=== PATIENT | male | born 1975 | race Caucasian/White ===

== ENCOUNTER 2024-10-02 01:47 | Inpatient (IN) | payer BC ==
[~2024-10-02] VITALS: Ht 177.8 cm; Wt 104.0 kg
[2024-10-02 02:21] LABS: BASOPHILS # (AUTO) 0.1 X10'3 (0-0.2); BASOPHILS % (AUTO) 0.5 % (0-1); EOSINOPHILS # (AUTO) 0.1 X10'3 (0-0.9); EOSINOPHILS % (AUTO) 0.8 % (0-6); HEMATOCRIT 28.3 % (42.0-52.0); HEMOGLOBIN 8.6 g/dl (14.0-17.9); LYMPHOCYTES # (AUTO) 1.9 X10'3 (1.1-4.8); LYMPHOCYTES % (AUTO) 16.3 % (21-51); MEAN CORPUSCULAR HEMOGLOBIN 17.2 PG (27.0-31.0); MEAN CORPUSCULAR HGB CONC 30.5 g/dL (33.0-36.5); MEAN CORPUSCULAR VOLUME 56.3 FL (78-98); MEAN PLATELET VOLUME 8.2 FL (7.4-10.4); MONOCYTES # (AUTO) 0.9 X10'3 (0-0.9); MONOCYTES % (AUTO) 7.5 % (2-12); NEUTROPHILS # (AUTO) 8.7 X10'3 (1.8-7.7); NEUTROPHILS % (AUTO) 74.9 % (42-75); PLATELET COUNT 527 X10'3 (140-440); RED BLOOD COUNT 5.03 X10'6 (4.70-6.10); RED CELL DISTRIBUTION WIDTH 18.8 % (11.5-14.5); WHITE BLOOD COUNT 11.6 X10'3 (4.5-11.0)
[2024-10-02 02:35] LABS: ALANINE AMINOTRANSFERASE 24 U/L (12-78); ALBUMIN 3.6 G/DL (3.4-5.0); ALBUMIN/GLOBULIN RATIO 0.9 (1.1-1.5); ALKALINE PHOSPHATASE 113 IU/L (46-116); ANION GAP 13 (8-16); ASPARTATE AMINO TRANSFERASE 18 U/L (10-37); BILIRUBIN,TOTAL 0.6 MG/DL (0.1-1.0); BLOOD UREA NITROGEN 13 MG/DL (7-18); BUN/CREATININE RATIO 13.3 (10.0-20.0); CALCIUM 8.7 MG/DL (8.5-10.1); CHLORIDE 104 MMOL/L (99-107); CREATININE 0.98 MG/DL (0.60-1.10); GLUCOSE 129 MG/DL (70-104); POTASSIUM 3.6 MMOL/L (3.5-5.1); SODIUM 137 MMOL/L (135-145); TOTAL CARBON DIOXIDE 20.2 MMOL/L (24-32); TOTAL PROTEIN 7.5 G/DL (6.4-8.2); eCRCL 93 ML/MIN; eGFR 81 ML/MIN
[2024-10-02 02:42] LABS: ANISOCYTOSIS 3+; ELLIPTOCYTES FEW; MICROCYTOSIS 3+; PLATELET ESTIMATE INCREASED
--- NOTE | 2024-10-02 02:52 | Physician Documentation ---
History of Present Illness ~ Chief Complaint: Abdominal Pain Stated Complaint: MASS Time Seen by MD: 01:51 HPI 49 year old male with nausea and abdominal pain, sent by [facility] with CT scan findings concerning for colonic mass/neoplasm. Sent for GI workup, endoscopy. Medication Reconciliation Allergies: Coded Allergies: aspirin (Verified Allergy, Severe, ANAPHYLACTIC, 10/02/24) Scheduled Cetirizine Hcl (Zyrtec), 1 CAP PO DAILY, (Reported) Oxymetazoline HCl (Afrin), 1 SPRAYS BOTHNARES Q12H, (Reported) Past Medical History Smoking Status: Former smoker Review of Systems All Other Systems at this time: Reviewed and Negative Physical Exam Vital Signs: Temperature: 98.6, Source: Oral, Heart Rate: 84, Respiratory Rate: 16, BP: 134/61, Pulse Oximetry: 98, Weight: 104.000 Oxygen Flow Rate: 0 Physical Exam HEENT: PERRL, moist oral mucosa, EOMI Pulmonary: No respiratory distress GI: nondistended, soft, +TTP RUQ, no guarding, no rebound MSK: no deformity Skin: w/d/i, no rash Neuro: alert, nonfocal Psych: normal affect Progress Results/Orders Reviewed/noted all lab results: Yes Results/Orders Orders - TACO CARTER MD Page Hospitalist (10/02/24 ) Completed Orders - TACO CARTER MD Cbc/Diff (10/02/24 01:58) CMP (10/02/24 01:58) LA (10/02/24 01:58) Ondansetron Inj. (Zofran 4mg/2ml Vial) (10/02/24 02:15) MG (10/02/24 02:05) C-Reactive Protein (10/02/24 02:05) Hgb A1c (10/02/24 02:05) Ferritin (10/02/24 02:05) Vital Signs 10/02/24 01:49 Temp 98.6 Pulse 84 Resp 16 B/P (MAP) 134/61 Pulse Ox 98 O2 Flow Rate 0 Laboratory Tests Test 10/02/24 02:05 White Blood Count 11.6 H Red Blood Count 5.03 Hemoglobin 8.6 L Hematocrit 28.3 L Mean Corpuscular Volume 56.3 L Mean Corpuscular Hemoglobin 17.2 L Mean Corpuscular Hemoglobin Concent 30.5 L Red Cell Distribution Width 18.8 H Platelet Count 527 H Mean Platelet Volume 8.2 Neutrophils (%) (Auto) 74.9 Lymphocytes (%) (Auto) 16.3 L Monocytes (%) (Auto) 7.5 Eosinophils (%) (Auto) 0.8 Basophils (%) (Auto) 0.5 Neutrophils # (Auto) 8.7 H Lymphocytes # (Auto) 1.9 Monocytes # (Auto) 0.9 Eosinophils # (Auto) 0.1 Basophils # (Auto) 0.1 CBC Comment Platelet Estimate Increased Red Blood Cell Morphology Perf Basophilic Stippling Anisocytosis 3+ Microcytosis 3+ Macrocytosis Few Elliptocytes Few Erythrocyte Sedimentation Rate 16 Sodium Level 137 Potassium Level 3.6 Chloride Level 104 Carbon Dioxide Level 20.2 L Anion Gap 13 Blood Urea Nitrogen 13 Creatinine 0.98 Estimated GFR/1.73 m2 81 BUN/Creatinine Ratio 13.3 Glucose Level 129 H Hemoglobin A1c 7.5 H Lactic Acid Level 2.1 H Calcium Level 8.7 Magnesium Level 1.7 Ferritin 4 L Total Bilirubin 0.6 Aspartate Amino Transf (AST/SGOT) 18 Alanine Aminotransferase (ALT/SGPT) 24 Alkaline Phosphatase 113 C-Reactive Protein 0.41 Total Protein 7.5 Albumin 3.6 Globulin 3.9 Albumin/Globulin Ratio 0.9 L Procalcitonin < 0.05 Chemistry Comments Medical Decision Making Findings 49 year old male with new colonic lesion suspicious for neoplasm. Arrived as transfer, was nauseated, provided fluids, antibiotics, and nausea meds. Care transferred to hospitalist. Departure Disposition: ADMITTED INPATIENT Admitted to Inpatient Unit: to hospitalist Admission Level of Care: Med/Surg Impression: Primary Impression: Colonic mass Condition: Stable Referrals: NO PRIMARY CARE PROVIDER (PCP) Education Educated: Patient, Family Educated regarding: diagnosis, treatment, prognosis, need for follow up Signature Scribe Signature: . Attestation: . TACO CARTER MD October 02, 2024 02:52
[2024-10-02] MEDS: ondansetron/PF 4mg/2ml inj IV ONE (03:01)
[2024-10-02] MEDS ORDERED: potassium Cl 20 mEq SR tablet PO PRN ×2 (03:05)
[2024-10-02] MEDS ORDERED: magnesium sulf-water 4G/100mL 100 ML IV PRN (03:05)
[2024-10-02] MEDS ORDERED: potassium Cl 40MEQ/1/2NS 520ml 520 ML IV PRN (03:05)
[2024-10-02] MEDS ORDERED: mag hydrox/Alum hydrox/simeth 30ml oral suspension PO PRN (03:05)
[2024-10-02] MEDS ORDERED: acetaminophen 325mg tablet PO PRN (03:05)
[2024-10-02] MEDS ORDERED: magnesium sulf-water 2g/50mL 50 ML IV PRN (03:05)
[2024-10-02] MEDS ORDERED: magnesium Cl slow-release 64mg tablet PO PRN (03:05)
--- NOTE | 2024-10-02 03:18 | HISTORY AND PHYSICAL-Residence ---
History & Physical Providers to CC Resident Creating Document: ROMI HUBBARD, JESSICA ~ History of Present Illness Reason for Admit\Complaint: Gastroenteritis/anemia/colonic mass History of Present Illness This is a 49-year-old male with past medical history of diabetes, was transferred from [place] with a concern of colonic mass. 10 days ago he started experiencing abdominal pain, nausea, vomiting, diarrhea. The abdominal pain is located in the epigastric region, nonradiating, intermittent, crampy and pressure-like, usually occurs 15-20 minutes after eating something, feels better on lying the left side. He also had nausea and vomiting around the same time, about 3-4 episodes in total. He also had diarrhea which started around the same time, loose and watery, about 3-4 episodes an hour, denied any blood in the stool, was more watery and mucousy. He denied any fever, black-colored stools. Denied any sick contact. About three weeks ago he went hiking and was played in his stream, did not drink any of that water. None of the other people who were with him at the time of hiking are sick. No previous history of abdominal surgeries He tried taking multiple loperamide but that did not relieve with the diarrhea. 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 ROS Constitutional: Reports: weakness Eyes: Denies: no symptoms reported, see HPI, pain, discharge, blurred vision, double vision, itching, photophobia, redness, tearing, other ENT: Denies: no symptoms reported, see HPI, ear pain, ear bleeding, ear discharge, hearing loss, ear ringing, nose pain, nose bleeding, nose congestion, nose discharge, throat pain, throat swelling, voice change, mouth pain, mouth bleeding, mouth swelling, other Respiratory: Denies: no symptoms reported, see HPI, cough, orthopnea, shortness of breath, SOB with exertion, SOB at rest, stridor, wheezing, hemoptysis, pain with breathing, other Cardiovascular: Denies: no symptoms reported, see HPI, chest pain, left arm pain, diaphoresis, lightheadedness, syncope, edema, palpitations, irregular heart rate, other Gastrointestinal: Reports: abdominal pain, nausea, vomiting, diarrhea Genitourinary: Reports: no symptoms reported Neurological: Reports: no symptoms reported Musculoskeletal: Reports: no symptoms reported Exam Vitals: Vital Signs Date Time Temp Pulse Resp B/P (MAP) Pulse Ox O2 Delivery O2 Flow Rate FiO2 10/02/24 01:49 98.6 84 16 134/61 98 0 General: General: Awake and Alert, no acute distress. HEENT: Conjunctiva pink, Sclera clear, Mucus Membranes moist. Resp: Unlabored. Bilateral breath sounds are clear Heart: Regular Rate and rhythm, normal S1 and S2, no murmur Abdomen: Soft, tenderness present in the epigastric region, no guarding, no rigidity, normal bowel sounds. Extremities: No pedal edema, no cyanosis, no clubbing MANAGER INTERVENTIONAL: Conscious, coherent, alert and oriented x4. No motor or sensory deficits noted. No motor drift noted. No cranial nerve deficits noted. Skin: Warm and Dry. No jaundice Diagnostic Data Last Recorded Lab Results: 10/02/24 0205 10/02/24 0205 Advance Care Planning Advanced Care plannin - 30 Minutes (I spent 17 minutes in discussing various resuscitative measures, the patient chose to be full code.) Additional Plan Assessment This is a 49-year-old male with history of diaper diabetes mellitus, came to the ER with a chief complaint of echo with drowsy, vomiting, diarrhea Plan Acute colitis inflammatory vs infectious Stool cultures ordered C diff ordered. CT abdomen showed coloenteric fistula. IV fluids NS @ 100 mL/hour Received vanc and Zosyn at [place]. Started on ceftriaxone and Flagyl Colonic mass Abdominal CT with IV contrast showed masslike colonic wall thickening at the splenic flexure, highly suspicious for malignancy. 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 Mildly enlarged mesenteric lymph nodes in the left hemiabdomen Consult GI for colonoscopy tomorrow. NPO Microcytic hypochromic anemia Hemoglobin 8.6, MCV 56.3 Ovarian panel ordered. Stool occult ordered Consult GI for possible endoscopy and colonoscopy Started on pantoprazole 40 mg IV b.i.d. Reactive Leukocytosis Patient has elevated WBC count. Also has elevated lactic acid likely secondary to diarrhea. Prediabetic A1c ordered. Code status: Full DVT prophylaxis: Lovenox GI prophylaxis: Pantoprazole Diet: NPO Lines/tubes: Peripheral IV line Status: Guarded Romi Hubbard M.D PGY1 Mau Addendum #1 Neuro: - Monitor for delirium. #2 CV: - Patient hemodynamically stable #3 Pulm: The patient has a history of asthma. - Continue home inhalers - Promote incentive spirometry (IS) use. - Keep O2 saturation >92%. #4 GI: The patient has 2 weeks of diarrhea; Colonic mass present; etiology unclear ddx includes malignancy, infection, parasite. WIll need to get imaging - consider further evaluation with colonoscopy or imaging - stool studies - Monitor for dehydration and electrolyte imbalances. - Advance diet when okay with primary care. - #5 Renal: - Monitor for acute kidney injury (OMER); check renal function regularly. - Replete electrolytes as needed. #6 ID: In case, walled abscess, start abx until etiology better elucidated - Flagyl and Ceftriaxone #7 Endo: Patient with history of diabetes mellitus. - Start insulin sliding scale to keep serum glucose 150-180 mg/dL. #8 Heme/Onc: - Monitor for bleeding and blood clots. - Keep hemoglobin >7 g/dL and platelets >10,000/L. #9 PPx: - Initiate chemical DVT prophylaxis. Date of Service: October 02, 2024 Billing Provider: KEYSHAWN BEAR MD, PRAVAHIKA, RES October 02, 2024 03:18 KEYSHAWN BEAR MD October 02, 2024 07:44
[2024-10-02] MEDS: normal saline 1000ml 1,000 ML IV SCH (03:30)
[2024-10-02] MEDS ORDERED: CETI10CA PO (04:02)
[2024-10-02] MEDS ORDERED: OXYM30SP26 BOTHNARES (04:03)
[2024-10-02 04:22] LABS: HEMOGLOBIN A1C 7.5 % (4.5-6.2)
[2024-10-02 04:25] LABS: C-REACTIVE PROTEIN 0.41 MG/DL (0.0-0.5); FERRITIN 4 NG/ML (26-388); MAGNESIUM 1.7 MG/DL (1.5-2.4)
[2024-10-02] MEDS ORDERED: DEXTROSE 15 GM of carb/4 tabs (each vial/BOTTLE has 4 tablets) PO PRN ×2 (06:50)
[2024-10-02] MEDS ORDERED: glucagon, human recombinant 1mg kit SUBCUT PRN (06:50)
[2024-10-02] MEDS ORDERED: dextrose 50%-water 50ml dispensing syringe IV PRN ×2 (06:50)
[2024-10-02 07:25] LABS: % IRON SATURATION 2 % (11-46); IRON 8 UG/DL (53-167); TOTAL IRON BINDING CAPACITY 420 UG/DL (259-388)
[2024-10-02] MEDS ORDERED: iohexol 350MG/ML 100ml bottle IV ONE (07:38)
[2024-10-02] MEDS: enoxaparin 40mg/0.4ml syringe SUBCUT SCH (07:44)
[2024-10-02] MEDS: K and/or MAG REPLACEMENT MC SCH (07:51)
[2024-10-02] MEDS: pantoprazole 40 MG vial IV SCH (07:57)
[2024-10-02] MEDS: metroNIDAZOLE-Flagyl 500mg/NS 100 ML IV SCH ×2 (07:57→22:03)
[2024-10-02] MEDS: CefTRIAXone/D5W-Rocephin 1gm 50 ML IV SCH (07:57)
[2024-10-02 08:20] VITALS: BP 133/83; PULSE 85; RESP 17; TEMP 97.4; O2SAT 98
[2024-10-02] MEDS: INSULIN LISPRO 100 UNIT/ML INSULN.PEN MULTI-DOSE SQ SCH (08:30)
[2024-10-02 08:35] VITALS: RESP 17; O2SAT 98
--- NOTE | 2024-10-02 09:27 | RADIOLOGY REPORT ---
Indication: pain after eating with elevated LA, Suspicion for mesentric ischemia Technique: CT axial images of the abdomen and pelvis are obtained with intravenous contrast. Coronal and sagittal reformats were obtained. Radiation Dose Information: CTDI volume is 30.3 mGy. Dose-length product is 1725 mGy*cm Comparison: None FINDINGS: Lung bases demonstrate no pleural effusion. Adrenal glands, spleen, pancreas unremarkable. Hepatic steatosis. No CT evidence for cholelithiasis. Kidneys demonstrate no hydronephrosis. Stomach is partially distended. There is severe irregular wall thickening of the splenic flexure of the colon measuring 9.3 by 8.3 cm with luminal narrowing, consistent with colonic neoplasm. There are small adjacent lymph nodes measu ring up to 13 mm. Normal appendix. The abdominal aorta is normal in caliber. Atherosclerotic disease with mild eccentric mural wall thro mbus. Celiac, SMA, renal, inferior mesenteric arteries are patent. Bladder is partially distended. No free pelvic fluid. No inguinal lymphadenopathy. IMPRESSION: 1. 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 Recommend GI and oncology consultation for further evaluation, management. 2. Atherosclerotic diseaseFindings Colon cancer findings were communicated to patient's nurse Irma at 9:24 a.m. On 10/02/2024. She w ill communicate findings to the patient's hospitalist (IT tried multiple times to reach hospitalist parvin rg)
[2024-10-02 09:29] LABS: BILIRUBIN,URINE NEGATIVE (Neg); CLARITY,URINE CLEAR (Clear); COLOR,URINE YELLOW (Yellow); GLUCOSE, URINE NEGATIVE (Neg); KETONES,URINE 15 mg/dl (Neg); LEUKOCYTE ESTERASE ,URINE NEGATIVE (Neg); NITRITES, URINE NEGATIVE (Neg); OCCULT BLOOD,URINE NEGATIVE (Neg); PH,URINE 5.5 (4.8-8.0); PROTEIN,URINE NEGATIVE (Neg); UROBILINOGEN,URINE 0.2 E.U/dL (0.2-1.0)
[2024-10-02 09:32] LABS: UA COLLECTION TYPE CLN CATCH MIDSTREAM
[2024-10-02 10:00] VITALS: BP 120/66; PULSE 83; RESP 16; TEMP 98.3; O2SAT 98
[2024-10-02] MEDS: ondansetron/PF 4mg/2ml inj IV PRN (15:00)
[2024-10-02] MEDS: PEG 3350/Na sulf,bicarb,Cl/KCl oral sol 4 liter bottle PO ONE (16:38)
[2024-10-02 18:00] VITALS: BP 149/68; PULSE 82; RESP 14; TEMP 98.1; O2SAT 97
[2024-10-02] MEDS: insulin glargine (Lantus) pen - multi-dose SQ SCH (21:00)
[2024-10-02 22:00] VITALS: BP 148/74; PULSE 76; RESP 16; TEMP 98.4; O2SAT 95
[2024-10-03] VITALS (11 sets, daily range): BP systolic 118–149; BP diastolic 59–88; PULSE 67–97; RESP 13–20; TEMP 97.9–98.4; O2SAT 94–99
[2024-10-03 00:57] LABS: OCCULT BLOOD STOOL NEGATIVE (Neg)
[2024-10-03] MEDS: LORazepam 2 mg/ml vial IV ONE (03:19)
[2024-10-03 06:11] LABS: BASOPHILS % (AUTO) 0.7 % (0-1); EOSINOPHILS # (AUTO) 0.2 X10'3 (0-0.9); EOSINOPHILS % (AUTO) 2.4 % (0-6); HEMATOCRIT 26.5 % (42.0-52.0); LYMPHOCYTES # (AUTO) 1.7 X10'3 (1.1-4.8); LYMPHOCYTES % (AUTO) 22.5 % (21-51); MEAN CORPUSCULAR HGB CONC 30.2 g/dL (33.0-36.5); MEAN CORPUSCULAR VOLUME 56.2 FL (78-98); MEAN PLATELET VOLUME 8.2 FL (7.4-10.4); MONOCYTES # (AUTO) 0.7 X10'3 (0-0.9); MONOCYTES % (AUTO) 9.9 % (2-12); NEUTROPHILS # (AUTO) 4.9 X10'3 (1.8-7.7); NEUTROPHILS % (AUTO) 64.5 % (42-75); PLATELET COUNT 516 X10'3 (140-440); RED BLOOD COUNT 4.72 X10'6 (4.70-6.10); RED CELL DISTRIBUTION WIDTH 18.3 % (11.5-14.5); WHITE BLOOD COUNT 7.5 X10'3 (4.5-11.0)
[2024-10-03 06:35] LABS: ALANINE AMINOTRANSFERASE 24 U/L (12-78); ALBUMIN 3.2 G/DL (3.4-5.0); ALBUMIN/GLOBULIN RATIO 0.9 (1.1-1.5); ALKALINE PHOSPHATASE 103 IU/L (46-116); ANION GAP 9 (8-16); ASPARTATE AMINO TRANSFERASE 22 U/L (10-37); BILIRUBIN,TOTAL 0.5 MG/DL (0.1-1.0); BLOOD UREA NITROGEN 7 MG/DL (7-18); BUN/CREATININE RATIO 8.4 (10.0-20.0); CALCIUM 8.4 MG/DL (8.5-10.1); CHLORIDE 107 MMOL/L (99-107); CHOL/HDL RATIO 2.3 (0.00-4.99); CHOLESTEROL 68 MG/DL (0-200); CREATININE 0.83 MG/DL (0.60-1.10); GLUCOSE 120 MG/DL (70-104); HDL CHOLESTEROL 30 MG/DL (35-60); LDL CHOLESTEROL 31 MG/DL (50-100); MAGNESIUM 1.6 MG/DL (1.5-2.4); POTASSIUM 3.8 MMOL/L (3.5-5.1); SODIUM 141 MMOL/L (135-145); TOTAL CARBON DIOXIDE 24.6 MMOL/L (24-32); TOTAL PROTEIN 6.6 G/DL (6.4-8.2); TRIGLYCERIDES 50 MG/DL (20-135); eCRCL 110 ML/MIN; eGFR > 90 ML/MIN
[2024-10-03] MEDS ORDERED: nasocort NAS (09:05)
[2024-10-03 09:55] LABS: C DIFFICILE TOXINS A&B NEGATIVE (Neg)
[2024-10-03 09:56] LABS: C DIFF ANTIGEN NEGATIVE (NEGATIVE); C DIFF SPECIMEN=DIARRHEA? ACCEPTABLE
[2024-10-03] MEDS: LORazepam 1 MG tablet PO PRN (11:11)
[2024-10-03] MEDS ORDERED: meperidine/PF 25mg/ml syringe IV PRN (13:05)
[2024-10-03] MEDS ORDERED: HYDROmorphone/PF 0.2 MG/ML SYRINGE IV PRN (13:05)
[2024-10-03] MEDS ORDERED: morphine 2 MG/ML inj. syringe IV PRN (13:05)
[2024-10-03] MEDS: ringers solution, lacted 1,000 ML IV SCH (13:05)
[2024-10-03] MEDS ORDERED: ondansetron/PF 4mg/2ml inj IV PRN (13:05)
[2024-10-03] MEDS ORDERED: proCHLORperazine 10 MG/2 ml inj IV PRN (13:05)
[2024-10-03] MEDS ORDERED: propofol inj 20 ML IV ONE ×2 (13:40)
[2024-10-03] MEDS ORDERED: propofol 1000mg/100ml bottle 0 ML IV ONE (13:46)
--- NOTE | 2024-10-03 17:40 | PROGRESS NOTE- Residence ---
Progress Note - Resident Providers to CC Resident Creating Document: MAJO AGUILAR RES CC: JAMES RDZ MD ~ Antibiotic Timeout Antibiotic Ordered?: Yes Subjective Patient was examined at bedside. Patient seems to be anxious and worried. Patient does not have any acute overnight events. Has bowel movements from the GoLYTELY prep. Objective Vital Signs Date Time Temp Pulse Resp B/P (MAP) Pulse Ox O2 Delivery O2 Flow Rate FiO2 10/03/24 14:40 84 20 132/88 97 Room Air 10/03/24 14:00 5.0 10/03/24 10:00 98.0 Result Diagram: 10/03/2451910/03/24519 General: Alert, awake, oriented, not in acute distress HEENT: PERRLA, no icterus, pallor, lymphadenopathy, carotid bruit Respiratory system: Bilateral vesicular breath sounds heard, no adventitious breath sounds CVS: S1-S2 heard, no murmurs/rubs/gallop GI: Soft, nontender, no organomegaly, no guarding/rigidity, bowel sounds present Neuro: No focal neurological deficits present Extremities: No edema cyanosis clubbing/deformities Skin: Warm and dry Psych: Anxious Assessment Assessment A 49-year-old male with a past medical history of diabetes mellitus presented to the ED with abdominal pain, nausea, vomiting and diarrhea. On further evaluation patient was found to have a mass which is most likely cancerous on CT imaging. Patient underwent colonoscopy on 10/03/2024. Dr. Dillon is consulted. Plan Plan Chronic diarrhea secondary to colonic mass suspicious of cancer Acute colitis inflammatory vs infectious, ruled out C diff negative Continue IV fluids Discontinued antibiotics Abdominal CT with IV contrast showed masslike colonic wall thickening at the splenic flexure, highly suspicious for malignancy. Patient underwent colonoscopy today Awaiting Dr. Dillon (surgeon) recommendations IV Zofran p.r.n. for nausea and vomitus Microcytic hypochromic anemia 2/2 possible colon cancer H/H: 826.5, downtrended probably secondary to fluid resuscitation Stool occult negative Low ferritin, iron Started on supplemental iron and vitamin-C IV pantoprazole 40 mg once day Type 2 DM, newly diagnosed A1c: 7.5 Lantus 15 units, medium dose sliding scale insulin Anxiety IV Ativan p.r.n. Reactive Leukocytosis, resolved Lactic acidosis, resolved Code status: Full DVT prophylaxis: Lovenox Diet: Clear liquid Disposition: Continue care in ortho floor, awaiting Dr. Dillon's recommendations Majo Aguilar MD Internal Medicine, PGY 1 Date of Service: October 03, 2024 Billing Provider: JAMES RDZ MD,MAJO, RES October 03, 2024 17:40
--- NOTE | 2024-10-03 18:00 | CONSULTATION ---
DATE OF CONSULTATION: 10/03/2024 DICTATING PHYSICIAN: Isaías Simmons MD REASON FOR CONSULTATION: Abdominal pain, nausea, vomiting, abnormal CT scan, and anemia. HISTORY OF PRESENT ILLNESS: The patient is a 49-year-old gentleman who presented to the local hospital for abdominal pain associated with nausea and vomiting. The patient had a CT scan which showed concerning for colon mass and he was also found to be anemic. The patient denies bright red blood per rectum or melena. FAMILY HISTORY: Denies family history of colon cancer. PHYSICAL EXAMINATION: GENERAL: The patient is alert, awake, in no acute distress. HEENT: Sclerae are anicteric. NECK: Supple. CARDIOVASCULAR: Regular rate. ABDOMEN: Soft. No guarding or rigidity. EXTREMITIES: Lower extremities: No edema. IMPRESSION AND PLAN: The patient is a 49-year-old gentleman who presents with nausea, vomiting, abdominal pain, diarrhea, anemia, and found to have abnormal CT scan. Given his presentation, colonoscopy is indicated for further evaluation. Meanwhile, I would recommend to optimize his cardiopulmonary condition, prep him with GoLYTELY, then keep him n.p.o. We will plan for colonoscopy. The indications, risks, and alternatives of the procedure, especially risks of infection, bleeding, perforation, cardiopulmonary decompression were discussed with him in detail. He understood and agreed to proceed. Isaías Simmons MD TID: [id number] RECEIPT: [id number] CASSY/LAYA
--- NOTE | 2024-10-03 20:23 | PROGRESS NOTE ---
Progress Note Dictate Providers to CC CC: FELIX HARDING MD ~ Progress Note: Patient with partially obstructing, fungating colon mass at the splenic flexure Biopsied and tattooed today Needs resection Plan for tomorrow NPO after midnight Full consult to follow Antibiotic Ordered?: N/A Objective Vitals Vital Signs Date Time Temp Pulse Resp B/P (MAP) Pulse Ox O2 Delivery O2 Flow Rate FiO2 10/03/24 18:30 97.9 67 18 127/74 (91) 98 Room Air 10/03/24 14:00 5.0 Lab Results: 10/03/24 0520 10/03/24 0520 FELIX HARDING MD October 03, 2024 20:23
[2024-10-03] MEDS: ferrous sulfate 325mg tablet PO SCH (20:42)
[2024-10-04] VITALS (17 sets, daily range): BP systolic 123–171; BP diastolic 63–97; PULSE 70–91; RESP 14–20; TEMP 97.3–98.6; O2SAT 92–100
[2024-10-04 04:43] LABS: BASOPHILS % (AUTO) 0.6 % (0-1); EOSINOPHILS # (AUTO) 0.2 X10'3 (0-0.9); EOSINOPHILS % (AUTO) 2.7 % (0-6); HEMATOCRIT 23.5 % (42.0-52.0); HEMOGLOBIN 7.3 g/dl (14.0-17.9); LYMPHOCYTES # (AUTO) 1.3 X10'3 (1.1-4.8); LYMPHOCYTES % (AUTO) 17.3 % (21-51); MEAN CORPUSCULAR HEMOGLOBIN 17.3 PG (27.0-31.0); MEAN CORPUSCULAR VOLUME 55.8 FL (78-98); MEAN PLATELET VOLUME 6.8 FL (7.4-10.4); MONOCYTES # (AUTO) 0.6 X10'3 (0-0.9); MONOCYTES % (AUTO) 8.5 % (2-12); NEUTROPHILS # (AUTO) 5.2 X10'3 (1.8-7.7); NEUTROPHILS % (AUTO) 70.9 % (42-75); PLATELET COUNT 474 X10'3 (140-440); RED BLOOD COUNT 4.22 X10'6 (4.70-6.10); RED CELL DISTRIBUTION WIDTH 18.2 % (11.5-14.5); WHITE BLOOD COUNT 7.4 X10'3 (4.5-11.0)
[2024-10-04 05:00] LABS: ALANINE AMINOTRANSFERASE 24 U/L (12-78); ALBUMIN/GLOBULIN RATIO 0.9 (1.1-1.5); ALKALINE PHOSPHATASE 93 IU/L (46-116); ANION GAP 7 (8-16); ASPARTATE AMINO TRANSFERASE 26 U/L (10-37); BILIRUBIN,TOTAL 0.4 MG/DL (0.1-1.0); BLOOD UREA NITROGEN 5 MG/DL (7-18); BUN/CREATININE RATIO 5.6 (10.0-20.0); CALCIUM 8.4 MG/DL (8.5-10.1); CHLORIDE 106 MMOL/L (99-107); GLUCOSE 121 MG/DL (70-104); MAGNESIUM 1.6 MG/DL (1.5-2.4); POTASSIUM 3.4 MMOL/L (3.5-5.1); SODIUM 140 MMOL/L (135-145); TOTAL CARBON DIOXIDE 26.7 MMOL/L (24-32); TOTAL PROTEIN 6.2 G/DL (6.4-8.2); eCRCL 101 ML/MIN; eGFR 89 ML/MIN
[2024-10-04] MEDS: potassium Cl 20 mEq SR tablet PO STA (08:22)
[2024-10-04] MEDS: ascorbic acid 500mg tablet PO SCH (08:23)
[2024-10-04] MEDS: pantoprazole 40 MG vial IV SCH (08:49)
[2024-10-04] MEDS: ringers solution, lacted 1,000 ML IV ONE (09:40)
[2024-10-04] MEDS ORDERED: ondansetron/PF 4mg/2ml inj IV PRN (12:35)
[2024-10-04] MEDS: ringers solution, lacted 1,000 ML IV SCH (12:35)
[2024-10-04] MEDS ORDERED: fentaNYL/PF 50MCG/1 ML 2ML syringe IV PRN (12:35)
[2024-10-04] MEDS ORDERED: morphine 2 MG/ML inj. syringe IV PRN (12:35)
[2024-10-04] MEDS ORDERED: labetalol 20mg/4ml (5mg/ml) syringe IV PRN (12:35)
[2024-10-04] MEDS ORDERED: hydrALAZINE 20mg/ml inj. IV PRN (12:35)
--- NOTE | 2024-10-04 17:04 | PROGRESS NOTE- Residence ---
Progress Note - Resident Providers to CC Resident Creating Document: MAJO AGUILAR RES CC: JAMES RDZ MD ~ Antibiotic Timeout Antibiotic Ordered?: No Subjective Patient was examined at bedside. Patient underwent colonoscopy yesterday and is scheduled for surgery today. Patient states that he feels much better, no loose stools and abdominal pain decreased. Objective Vital Signs Date Time Temp Pulse Resp B/P (MAP) Pulse Ox O2 Delivery O2 Flow Rate FiO2 10/04/24 16:42 98.0 82 16 160/80 10/04/24 16:06 98 10/04/24 10:00 Room Air 10/03/24 14:00 5.0 Result Diagram: 10/04/2441610/04/24416 General: Alert, awake, oriented, not in acute distress HEENT: PERRLA, no icterus, pallor, lymphadenopathy, carotid bruit Respiratory system: Bilateral vesicular breath sounds heard, no adventitious breath sounds CVS: S1-S2 heard, no murmurs/rubs/gallop GI: Soft, nontender, no organomegaly, no guarding/rigidity, bowel sounds present Neuro: No focal neurological deficits present Extremities: No edema cyanosis clubbing/deformities Skin: Warm and dry Assessment Assessment A 49-year-old male with a past medical history of diabetes mellitus presented to the ED with abdominal pain, nausea, vomiting and diarrhea. On further evaluation patient was found to have a mass which is most likely cancerous on CT imaging. Patient underwent colonoscopy on 10/03/2024. Dr. Dillon scheduled surgery for today. Plan Plan Chronic diarrhea secondary to colonic mass suspicious of cancer Acute colitis inflammatory vs infectious, ruled out Continue IV fluids Abdominal CT with IV contrast showed masslike colonic wall thickening at the splenic flexure, highly suspicious for malignancy. (partially obstructing, fungating colon mass at the splenic flexure ) Follow up with biopsy Scheduled for surgery with Dr. Dillon. IV Zofran p.r.n. for nausea and vomitings Microcytic hypochromic anemia 2/2 possible colon cancer H/H: 7.3/23.5, downtrended probably secondary to fluid resuscitation Stool occult negative Low ferritin, iron Started on supplemental iron and vitamin-C IV pantoprazole 40 mg once day Type 2 DM, newly diagnosed A1c: 7.5 Lantus 15 units, medium dose sliding scale insulin Anxiety IV Ativan p.r.n. Reactive Leukocytosis, resolved Lactic acidosis, resolved Code status: Full DVT prophylaxis: Lovenox Diet: Clear liquid Disposition: Continue care in ortho floor, scheduled for surgery today Majo Aguilar MD Internal Medicine, PGY 1 Date of Service: October 04, 2024 Billing Provider: JAMES RDZ MD, SIVA, RES October 04, 2024 17:04
--- NOTE | 2024-10-04 17:23 | CONSULTATION REPORT ---
History of Present Illness Providers to CC CC: FELIX HARDING MD ~ Reason for Admit\Admit Dx: Colon cancer Refering MD: NONE History of Present Illness Patient with a two week history of nausea vomiting and diarrhea. Presented to walk-in clinic and told it was likely a parasite. He was told to just let it pass. Some blood work was done and he was noted to be significantly anemic. He presented to the emergency room and imaging was suspicious for colonic mass. At [facility], he was told there was not a steel checker building and construction manager and he was transferred here for Gastroenterology specialty. Yesterday he underwent colonoscopy to the splenic flexure where he was found to have a circumferential, fungating mass that was partially obstructing the colon and bleeding. This was consistent with colorectal cancer and surgical consultation was requested. This morning he has ongoing anemia. He is prepped for surgery. Allergies: Coded Allergies: aspirin (Verified Allergy, Severe, ANAPHYLACTIC, 10/02/24) Home Medications Home Medications Active Reported [nasocort] 250 Mcg ARNULFO DAILY Afrin (Oxymetazoline HCl) 0.05 % [place] 1 Sprays BOTHNARES Q12H 3 Days Zyrtec (Cetirizine Hcl) 10 Mg Capsule 1 Cap PO DAILY 30 Days Past Medical History Medical History Comment Depression/anxiety Past Surgical History Surgical History Comment None Past Family History Family History Comment Not applicable Family History: Patient reports no known family medical history. Past Social History Social History Comment Former smoker Negative for tobacco or drug use at this time No alcohol Physical Exam Last Vital Signs Recorded: RN Vital Signs have been reviewed: Yes, Temperature: 98.0, Source: Temporal, Heart Rate: 82, Respiratory Rate: 16, BP: 160/80, Pulse Oximetry: 98, Weight: 104.000 General Appearance: alert, WD/WN, no apparent distress EENT: PERRL/EOMI; No: scleral icterus (R), scleral icterus (L) Neck: normal inspection Respiratory: lungs clear Chest: no accessory muscle use Cardiovascular: normal peripheral pulses, regular rate, rhythm Gastrointestinal: normal palpation, non-tender; No: tenderness Genitalia: normal, no hernias Back: normal inspection, no CVA tenderness Extremities: normal range of motion, no edema Neurologic: oriented x4 Psychiatric: normal mood/affect; No: anxiety Skin: normal color Lymphatic: no adenopathy Results Diagram Lab Result Diagram: 10/04/24 0417 10/04/24 0417 Assessment/Plan Problems/Diagnosis: (1) Colon cancer Assessment & Plan: Symptomatic anemia Segmental colectomy recommended The risks, benefits, and alternatives to a robotic assisted, laparoscopic possible open partial colectomy, possible splenectomy were discussed with the patient. Risks include, but are not limited to, bleeding, infection, injury to intra-abdominal structures, leakage from the intestine and the need for additional surgery. Patient verbalized understanding and wishes to proceed with surgery. 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
[2024-10-04] MEDS ORDERED: fentaNYL/PF 50MCG/1 ML 2ML syringe ONE ×2 (18:43→20:21)
[2024-10-04] MEDS ORDERED: MIDAZolam 1 MG/ML 5ML VIAL ONE (18:43)
[2024-10-04] MEDS ORDERED: albumin (Human) 5% 250ml 250 ML IV ONE (18:44)
[2024-10-04] MEDS ORDERED: rocuronium 10mg/ml inj IV ONE ×3 (18:50→21:42)
[2024-10-04] MEDS ORDERED: LIDOcaine 1%/PF 5ML 10 MG/ML VIAL ONE (18:50)
[2024-10-04] MEDS ORDERED: acetaminophen 1,000mg/100ml IV 100 ML IV ONE (18:50)
[2024-10-04] MEDS ORDERED: propofol inj 20 ML IV ONE (18:50)
[2024-10-04] MEDS ORDERED: ondansetron/PF 4mg/2ml inj ONE (18:53)
[2024-10-04] MEDS ORDERED: ceFOXitin 1000 MG inj ONE ×2 (19:00)
[2024-10-04] MEDS ORDERED: BUPIVAcaine 2.5mg/ml inj 50ml vial (contains preservative) ONE (19:02)
[2024-10-04] MEDS ORDERED: LIDOcaine 1% (10mg/ml)w/preservative inj. 20ml MDV ONE (19:02)
[2024-10-04] MEDS ORDERED: INDOCYANINE GREEN 25 MG/10 ML VIAL IV ONE (19:23)
[2024-10-04] MEDS ORDERED: BUPIVACAINE liposomal/PF 13.3 MG/ML 10mL vial IM ONE (19:54)
[2024-10-04] MEDS ORDERED: fentaNYL /PF 50mcg/ml 5ml ampule ONE (21:31)
[2024-10-04] MEDS ORDERED: sugammadex 200mg/2ml injection IV ONE (21:37)
[2024-10-04] MEDS ORDERED: naloxone 0.4 mg/ml inj IV PRN (22:40)
[2024-10-04] MEDS: morphine 4 MG/ML inj SYRINge IV PRN (22:40)
[2024-10-04] MEDS: normal saline 1000ml 1,000 ML IV SCH (22:40)
[2024-10-04] MEDS ORDERED: HYDROmorph/NS 0.2 mg/ml PCA 100 ML IV SCH (22:40)
[2024-10-04] MEDS: MIDAZolam 5mg/ml 2ml vial IV ONE (22:40)
[2024-10-04] MEDS: morphine 10mg/ml inj. IV ONE (22:40)
--- NOTE | 2024-10-04 22:48 | OPERATIVE REPORT ---
Operative Report Providers to CC CC: IVÁN HARDING MD ~ Date of Procedure: October 04, 2024 Pre-Operative Diagnosis: Colon cancer-splenic flexure Post-Operative Diagnosis Large mass, apparently extending through the wall of the splenic flexure and densely adherent to adjacent small bowel Procedure Performed Robotic assisted laparoscopic mobilization of splenic flexure (CPT 51973) Robotic assisted laparoscopic partial colectomy with colo colonic anastomosis (CPT 35070) Robotic assisted, laparoscopic enterectomy with a small-bowel anastomosis (CPT 59468) Bilateral transversus abdominis plane nerve blocks by injection using 266 mg of Exparel Surgeon: Iván Harding MD FACS Transportation Assistant None Anesthesiologist: Lv Salazar Type of Anesthesia: General Findings: Large tumor at the splenic flexure of the transverse colon with grossly involved adjacent and adherent proximal jejunum requiring en bloc resection Enteroenterostomy in the proximal jejunum Colocolostomy between mid transverse colon and mid descending colon Complications None Prosthetics\Implants used: None Estimated Blood Loss: Less than 50 cc Specimen Removed: Splenic flexure with attached segment of proximal jejunum Description of Procedure: Patient was brought to the operating room and identified by the nursing staff a nd the attending physician. Patient was placed supine and general anesthesia was induced. Preoperative antibiotics were given. Tipton catheter was placed. Abdomen was prepped and draped in the standard sterile fashion. Veress needle technique was used at lange's point in the abdomen was insufflated without incident. Abdomen was entered through the patient's right mid abdomen using an 8.5 mm robotic trocar. Abdomen was surveyed. There was some tattoo ink noted in the left upper quadrant. Additional robotic ports were placed in the right epigastrium right lower abdomen and lower abdomen just to the left of the midline. These were placed under laparoscopic visualization. Omentum was swept off of the transverse colon and there was an obvious, very large mass at this location. The patient was placed in reverse Trendelenburg position with the left side up. The [employer] robotic arm was docked to the patient and instruments were guided into the abdomen under laparoscopic visualization. Abdomen was further surveyed. There was no obvious extra colonic disease involving either the left or right lobe of the liver. There was no obvious extra colonic disease in the overlying omentum. There was no evidence of peritoneal studding. Attention was turned to mobilizing the splenic flexure. The lateral peritoneal attachments were incised and the colon was mobilized medially. The omentum was from the transverse colon and the splenic flexure was fully mobilized. Lifting the transverse colon up, it was noted that the tumor was densely adherent to a segment of proximal jejunum. It appeared that the tumor was grossly involving this segment of small bowel. The ligament of Treitz was taken down in the proximal jejunum was mobilized away from the mass that appeared to be invading into its mesentery. The adherent segment of proximal jejunum was carefully dissected on bloc with the colon. The involved small bowel was mobilized and the mesentery was divided using the vessel sealer. The proximal and distal margins of the colon and small bowel were identified and divided with the robotic staplers. The mesentery to the splenic flexure was divided sequentially using the vessel sealer and while doing so, mobilizing it away from the spleen. Once completely freed, it was swept to the right lateral abdomen. Anti peristaltic [id number] enteroenterostomy was created be deferring the segments of jejunum. Similar anti peristaltic [id number] colocolostomy was created, also using a robotic linear cutting stapler. Enterotomies and colotomies were closed individually with 3/0 absorbable V lock suture using a running [place] type suture which was then oversewn with a running Lembert suture using the same segment of suture. Once the two separate anastomoses were created, the omentum was swept back down over this. The instruments were removed and the [employer] robotic arm was undocked from the patient. The specimen was secured. Bilateral transversus abdominis plane nerve blocks by injection were then placed using a combination of 266 mg of Exparel and Marcaine. 12 mm port site was removed and its fascia closed percutaneously with 0 Vicryl suture. A generous periumbilical incision was made to accommodate removing the softball sized tumor with the adherence small bowel and its segment of splenic flexure. This was passed off the field and labeled as such. The midline fascia was closed with a running absorbable suture. Skin jered were used at all port sites and the midline incision. Sterile dressings were applied. Counts repoted as correct: Yes IVÁN HARDING MD October 04, 2024 22:48
[2024-10-04] MEDS: fentaNYL/PF 50MCG/1 ML 2ML syringe IV PRN (22:49)
[2024-10-04] MEDS: acetaminophen 1,000mg/100ml IV 100 ML IV PRN (22:49)
[2024-10-04 23:37] LABS: ISTAT ANION GAP 15 (8-12); ISTAT BUN < 3 mg/dL (7-18); ISTAT CL 104 mmol/L (99-107); ISTAT CREATININE 0.8 mg/dL (0.8-1.3); ISTAT GLUCOSE 234 mg/dL (70-104); ISTAT HGB 10.2 g/dl (14.0-17.9); ISTAT Hct 30 %PCV (42-52); ISTAT IONIZED CALCIUM 1.12 mmol/L (1.03-1.32); ISTAT K 3.9 mmol/L (3.5-5.1); ISTAT NA 138 mmol/L (135-145); ISTAT TOTAL CO2 19 mmol/L (24-32); ISTAT eGFR > 90 ML/MIN; POC BUN/CREATININE RATIO 3.8 (5.4-32.0)
[2024-10-05] VITALS (17 sets, daily range): BP systolic 135–165; BP diastolic 62–88; PULSE 70–89; RESP 13–18; TEMP 97.4–98; O2SAT 68–97
[2024-10-05] MEDS ORDERED: CADD PCA waste documentation MC SCH (00:55)
[2024-10-05] MEDS: HYDROmorph/NS 0.2 mg/ml PCA 100 ML IV SCH (01:19)
[2024-10-05 04:21] LABS: BASOPHILS % (AUTO) 0.3 % (0-1); EOSINOPHILS % (AUTO) 0 % (0-6); HEMOGLOBIN 8.6 g/dl (14.0-17.9); LYMPHOCYTES # (AUTO) 0.6 X10'3 (1.1-4.8); LYMPHOCYTES % (AUTO) 4.3 % (21-51); MEAN CORPUSCULAR HEMOGLOBIN 17.9 PG (27.0-31.0); MEAN CORPUSCULAR HGB CONC 30.7 g/dL (33.0-36.5); MEAN CORPUSCULAR VOLUME 58.1 FL (78-98); MEAN PLATELET VOLUME 6.4 FL (7.4-10.4); MONOCYTES # (AUTO) 0.6 X10'3 (0-0.9); MONOCYTES % (AUTO) 3.9 % (2-12); NEUTROPHILS # (AUTO) 13.2 X10'3 (1.8-7.7); NEUTROPHILS % (AUTO) 91.5 % (42-75); PLATELET COUNT 509 X10'3 (140-440); RED BLOOD COUNT 4.82 X10'6 (4.70-6.10); RED CELL DISTRIBUTION WIDTH 19.4 % (11.5-14.5); WHITE BLOOD COUNT 14.4 X10'3 (4.5-11.0)
[2024-10-05 04:40] LABS: ALANINE AMINOTRANSFERASE 21 U/L (12-78); ALBUMIN 3.3 G/DL (3.4-5.0); ALBUMIN/GLOBULIN RATIO 0.9 (1.1-1.5); ALKALINE PHOSPHATASE 100 IU/L (46-116); ANION GAP 11 (8-16); ASPARTATE AMINO TRANSFERASE 24 U/L (10-37); BILIRUBIN,TOTAL 0.5 MG/DL (0.1-1.0); BLOOD UREA NITROGEN 5 MG/DL (7-18); BUN/CREATININE RATIO 5.5 (10.0-20.0); CALCIUM 8.6 MG/DL (8.5-10.1); CHLORIDE 102 MMOL/L (99-107); CREATININE 0.91 MG/DL (0.60-1.10); GLUCOSE 196 MG/DL (70-104); MAGNESIUM 1.7 MG/DL (1.5-2.4); POTASSIUM 4.5 MMOL/L (3.5-5.1); SODIUM 138 MMOL/L (135-145); TOTAL CARBON DIOXIDE 24.8 MMOL/L (24-32); eCRCL 100 ML/MIN; eGFR 88 ML/MIN
[2024-10-05] MEDS: famotidine 20mg tablet PO ONE (06:46)
[2024-10-05] MEDS: enoxaparin 40mg/0.4ml syringe SQ SCH (08:26)
--- NOTE | 2024-10-05 15:51 | PROGRESS NOTE- Residence ---
Progress Note - Resident Providers to CC Resident Creating Document: MAJO AGUILAR RES CC: JAMES RDZ MD ~ Antibiotic Timeout Antibiotic Ordered?: No Subjective Patient was examined at bedside. Patient underwent surgery yesterday. Patient is still not passing flatus,does not have bowel movements. Objective Vital Signs Date Time Temp Pulse Resp B/P (MAP) Pulse Ox O2 Delivery O2 Flow Rate FiO2 10/05/24 13:00 16 10/05/24 11:00 98.0 70 144/78 (100) 68 Room Air 10/05/24 00:00 3.0 Result Diagram: 10/05/2440910/05/24409 General: Alert, awake, oriented, not in acute distress HEENT: PERRLA, no icterus, pallor, lymphadenopathy, carotid bruit Respiratory system: Bilateral vesicular breath sounds heard, no adventitious breath sounds CVS: S1-S2 heard, no murmurs/rubs/gallop GI: Surgical dressing present all over the abdomen, Soft, nontender, no organomegaly, no guarding/rigidity, hypoactive bowel sounds present Neuro: No focal neurological deficits present Extremities: No edema cyanosis clubbing/deformities Skin: Warm and dry Assessment Assessment A 49-year-old male with a past medical history of diabetes mellitus presented to the ED with abdominal pain, nausea, vomiting and diarrhea. On further evaluation patient was found to have a mass which is most likely cancerous on CT imaging. Patient underwent colonoscopy on 10/03/2024. Dr. Dillon scheduled surgery for today. Plan Plan Chronic diarrhea secondary to colonic mass suspicious of cancer S/P partial colectomy, enterectomy with a small-bowel anastomosis on 10/04/2024 Acute colitis inflammatory vs infectious, ruled out Continue IV fluids Abdominal CT with IV contrast showed masslike colonic wall thickening at the splenic flexure, highly suspicious for malignancy. (partially obstructing, fungating colon mass at the splenic flexure ) Follow up with biopsy, management per Dr. Dillon Advance diet as tolerated IV Zofran p.r.n. for nausea and vomitings Microcytic hypochromic anemia 2/2 possible colon cancer H/H: Improved to 8.6 after 1 unit transfusion Stool occult negative Low ferritin, iron Continue supplemental iron and vitamin-C IV pantoprazole 40 mg once day Type 2 DM, newly diagnosed A1c: 7.5 Lantus 15 units, medium dose sliding scale insulin Anxiety IV Ativan p.r.n. Reactive Leukocytosis, resolved Lactic acidosis, resolved Code status: Full DVT prophylaxis: Lovenox Diet: NPO, advance as tolerated Disposition: Continue care in surgical floor, awaiting biopsy results Majo Aguilar MD Internal Medicine, PGY 1 Date of Service: October 05, 2024 Billing Provider: JAMES RDZ MD, SIVA, RES October 05, 2024 15:51
--- NOTE | 2024-10-05 21:04 | PROGRESS NOTE ---
Progress Note Dictate Providers to CC ~ Progress Note: Subsequent surgical care on a 49-year-old gentleman with splenic flexure colon cancer who is postoperative day 1, status post robotic assisted, laparoscopic partial colectomy with en bloc small-bowel resection and both entero entero anastomosis and colo colonic anastomosis. Doing well Pain adequately controlled Awaiting return of bowel function Pathology pending Incisions dressed and dry Continue current plan Antibiotic Ordered?: No Objective Vitals Vital Signs Date Time Temp Pulse Resp B/P (MAP) Pulse Ox O2 Delivery O2 Flow Rate FiO2 10/05/24 17:00 16 10/05/24 11:00 98.0 70 144/78 (100) 68 Room Air 10/05/24 00:00 3.0 Lab Results: 10/05/24 0410 10/05/24 0410 Problem\Assessment\Plan Problems/Diagnosis: (1) Colon cancer Problem Qualifiers (1) Colon cancer: Qualified Codes: C18.5 - Malignant neoplasm of splenic flexure FELIX HARDING MD October 05, 2024 21:04
[2024-10-06 04:41] LABS: BASOPHILS % (AUTO) 0.4 % (0-1); EOSINOPHILS # (AUTO) 0.1 X10'3 (0-0.9); EOSINOPHILS % (AUTO) 1.1 % (0-6); HEMATOCRIT 27.6 % (42.0-52.0); HEMOGLOBIN 8.6 g/dl (14.0-17.9); LYMPHOCYTES # (AUTO) 1.3 X10'3 (1.1-4.8); LYMPHOCYTES % (AUTO) 11.9 % (21-51); MEAN CORPUSCULAR HGB CONC 31.1 g/dL (33.0-36.5); MEAN CORPUSCULAR VOLUME 57.9 FL (78-98); MEAN PLATELET VOLUME 8.2 FL (7.4-10.4); MONOCYTES # (AUTO) 0.9 X10'3 (0-0.9); MONOCYTES % (AUTO) 8.9 % (2-12); NEUTROPHILS # (AUTO) 8.3 X10'3 (1.8-7.7); NEUTROPHILS % (AUTO) 77.7 % (42-75); PLATELET COUNT 479 X10'3 (140-440); RED BLOOD COUNT 4.76 X10'6 (4.70-6.10); RED CELL DISTRIBUTION WIDTH 19.2 % (11.5-14.5); WHITE BLOOD COUNT 10.7 X10'3 (4.5-11.0)
[2024-10-06 04:55] LABS: ALANINE AMINOTRANSFERASE 22 U/L (12-78); ALBUMIN/GLOBULIN RATIO 0.9 (1.1-1.5); ALKALINE PHOSPHATASE 90 IU/L (46-116); ANION GAP 9 (8-16); ASPARTATE AMINO TRANSFERASE 18 U/L (10-37); BILIRUBIN,TOTAL 0.4 MG/DL (0.1-1.0); BLOOD UREA NITROGEN 6 MG/DL (7-18); BUN/CREATININE RATIO 8.5 (10.0-20.0); CALCIUM 8.4 MG/DL (8.5-10.1); CHLORIDE 103 MMOL/L (99-107); CREATININE 0.71 MG/DL (0.60-1.10); GLUCOSE 123 MG/DL (70-104); MAGNESIUM 1.5 MG/DL (1.5-2.4); POTASSIUM 3.8 MMOL/L (3.5-5.1); SODIUM 139 MMOL/L (135-145); TOTAL CARBON DIOXIDE 26.8 MMOL/L (24-32); TOTAL PROTEIN 6.5 G/DL (6.4-8.2); eCRCL 129 ML/MIN; eGFR > 90 ML/MIN
[2024-10-06 06:00] VITALS: BP 145/73; PULSE 72; RESP 14; TEMP 98; O2SAT 95
[2024-10-06 10:00] VITALS: BP 147/79; PULSE 77; RESP 17; TEMP 97.7; O2SAT 97
--- NOTE | 2024-10-06 10:21 | PROGRESS NOTE ---
Progress Note Dictate Providers to CC ~ Progress Note: Subsequent surgical care on a 49-year-old gentleman with splenic flexure colon cancer who is postoperative day 2, status post robotic assisted, laparoscopic partial colectomy with en bloc small-bowel resection and both entero entero anastomosis and colo colonic anastomosis. No acute issues Pain adequately controlled Awaiting return of bowel function Pathology still pending Incisions clean, dry, and intact Trial of clear liquids Continue current plan Dr. Tavares Pruitt we will be taking over for my patients starting this afternoon for the next five days Antibiotic Ordered?: No Objective Vitals Vital Signs Date Time Temp Pulse Resp B/P (MAP) Pulse Ox O2 Delivery O2 Flow Rate FiO2 10/06/24 06:00 98.0 72 14 145/73 (97) 95 Room Air 10/05/24 00:00 3.0 Lab Results: 10/06/24 0421 10/06/24 0421 Problem\Assessment\Plan Problems/Diagnosis: (1) Colon cancer Problem Qualifiers (1) Colon cancer: Qualified Codes: C18.5 - Malignant neoplasm of splenic flexure FELIX HARDING MD October 06, 2024 10:21
[2024-10-06 15:51] VITALS: BP 147/79; PULSE 77; RESP 17; TEMP 97.7; O2SAT 98
--- NOTE | 2024-10-06 17:44 | PROGRESS NOTE- Residence ---
Progress Note - Resident Providers to CC Resident Creating Document: MAJO AGUILAR RES CC: JAMES RDZ MD ~ Antibiotic Timeout Antibiotic Ordered?: No Subjective Patient was examined at bedside. Patient continues to not passed flatus but has bowel sounds. Objective Vital Signs Date Time Temp Pulse Resp B/P (MAP) Pulse Ox O2 Delivery O2 Flow Rate FiO2 10/06/24 10:00 Room Air 10/06/24 10:00 97.7 77 17 147/79 (101) 97 10/05/24 00:00 3.0 Result Diagram: 10/06/2442010/06/24420 General: Alert, awake, oriented, not in acute distress HEENT: PERRLA, no icterus, pallor, lymphadenopathy, carotid bruit Respiratory system: Bilateral vesicular breath sounds heard, no adventitious breath sounds CVS: S1-S2 heard, no murmurs/rubs/gallop GI: Surgical dressing present all over the abdomen, Soft, nontender, no organomegaly, no guarding/rigidity, sluggish bowel sounds present Neuro: No focal neurological deficits present Extremities: No edema cyanosis clubbing/deformities Skin: Warm and dry Assessment Assessment A 49-year-old male with a past medical history of diabetes mellitus presented to the ED with abdominal pain, nausea, vomiting and diarrhea. On further evaluation patient was found to have a mass which is most likely cancerous on CT imaging. Patient underwent colonoscopy on 10/03/2024. Dr. Dillon scheduled surgery for today. Plan Plan Chronic diarrhea secondary to colonic mass suspicious of cancer S/P partial colectomy, enterectomy with a small-bowel anastomosis on 10/04/2024 Acute colitis inflammatory vs infectious, ruled out Continue IV fluids Follow up with biopsy, management per Dr. Dillon Clear liquids, Advance diet as tolerated IV Zofran p.r.n. for nausea and vomitings Referral to [facility] Microcytic hypochromic anemia 2/2 possible colon cancer H/H: Stable status post 1 unit transfused Stool occult negative Low ferritin, iron Continue supplemental iron and vitamin-C IV pantoprazole 40 mg once day Type 2 DM, newly diagnosed A1c: 7.5 Lantus 15 units, medium dose sliding scale insulin Anxiety IV Ativan p.r.n. Reactive Leukocytosis, resolved Lactic acidosis, resolved Code status: Full DVT prophylaxis: Lovenox Diet: Clear liquid, advance as tolerated Disposition: Continue care in surgical floor, awaiting biopsy results Majo Aguilar MD Internal Medicine, PGY 1 Date of Service: October 06, 2024 Billing Provider: JAMES RDZ MD,MAJO, RES October 06, 2024 17:44
[2024-10-06 18:00] VITALS: BP 137/88; PULSE 85; RESP 17; TEMP 97.8; O2SAT 95
[2024-10-06 20:00] VITALS: RESP 17; O2SAT 95
[2024-10-06 22:00] VITALS: BP 135/71; PULSE 73; RESP 16; TEMP 97.7; O2SAT 95
[2024-10-07 04:43] LABS: BASOPHILS % (AUTO) 0.5 % (0-1); EOSINOPHILS # (AUTO) 0.3 X10'3 (0-0.9); EOSINOPHILS % (AUTO) 3.8 % (0-6); HEMOGLOBIN 8.8 g/dl (14.0-17.9); LYMPHOCYTES # (AUTO) 1.2 X10'3 (1.1-4.8); LYMPHOCYTES % (AUTO) 13.3 % (21-51); MEAN CORPUSCULAR HGB CONC 31.3 g/dL (33.0-36.5); MEAN CORPUSCULAR VOLUME 57.6 FL (78-98); MONOCYTES # (AUTO) 0.9 X10'3 (0-0.9); MONOCYTES % (AUTO) 10.2 % (2-12); NEUTROPHILS # (AUTO) 6.4 X10'3 (1.8-7.7); NEUTROPHILS % (AUTO) 72.2 % (42-75); PLATELET COUNT 437 X10'3 (140-440); RED BLOOD COUNT 4.86 X10'6 (4.70-6.10); RED CELL DISTRIBUTION WIDTH 19.6 % (11.5-14.5); WHITE BLOOD COUNT 8.9 X10'3 (4.5-11.0)
[2024-10-07 05:10] LABS: ALANINE AMINOTRANSFERASE 20 U/L (12-78); ALBUMIN 2.8 G/DL (3.4-5.0); ALBUMIN/GLOBULIN RATIO 0.7 (1.1-1.5); ALKALINE PHOSPHATASE 89 IU/L (46-116); ANION GAP 13 (8-16); ASPARTATE AMINO TRANSFERASE 14 U/L (10-37); BILIRUBIN,TOTAL 0.4 MG/DL (0.1-1.0); BLOOD UREA NITROGEN 6 MG/DL (7-18); BUN/CREATININE RATIO 8.2 (10.0-20.0); CALCIUM 8.7 MG/DL (8.5-10.1); CHLORIDE 102 MMOL/L (99-107); CREATININE 0.73 MG/DL (0.60-1.10); GLUCOSE 117 MG/DL (70-104); POTASSIUM 3.5 MMOL/L (3.5-5.1); SODIUM 139 MMOL/L (135-145); TOTAL CARBON DIOXIDE 24.3 MMOL/L (24-32); TOTAL PROTEIN 6.7 G/DL (6.4-8.2); eCRCL 125 ML/MIN; eGFR > 90 ML/MIN
[2024-10-07 06:00] VITALS: BP 121/62; PULSE 84; RESP 16; TEMP 97.6; O2SAT 96
[2024-10-07] MEDS: magnesium hydroxide 30ml (MOM) UD suspension PO PRN (07:35)
[2024-10-07 08:00] VITALS: RESP 16; O2SAT 98
[2024-10-07 10:00] VITALS: BP 127/63; PULSE 62; RESP 17; TEMP 97.7; O2SAT 100
[2024-10-07 11:00] VITALS: RESP 16
[2024-10-07] MEDS ORDERED: IBUP-1985 PO (12:47)
[2024-10-07 13:10] VITALS: O2SAT 98
[2024-10-07] MEDS ORDERED: METF-1203 PO (16:41)
--- NOTE | 2024-10-07 16:51 | DISCHARGE SUMMARY-Residence ---
Discharge Summary Providers to CC Resident Creating Document: AIRAM NEILCACHORRONEO FRANCISCO CC: JAMES RDZ MD ~ Discharge Summary Admission Diagnosis: Colon cancer-splenic flexure Hospital Course DATE OF ADMISSION: 10/02/2024 DATE OF DISCHARGE: 10/07/2024 Discharge Diagnosis\Comment: Colon cancer S/P partial colectomy, enterectomy with a small-bowel anastomosis on 10/04/2024 Microcytic hypochromic anemia secondary to above Type 2 DM, newly diagnosed Anxiety Reactive Leukocytosis, resolved Lactic acidosis, resolved Acute colitis ruled out Operations\Procedures: Partial colectomy, enterectomy with a small-bowel anastomosis on 10/04/2024 Consultants: Dr. Iván Dillon, surgery Dr. Simmons, GI Complications: None Condition on DC: Stable New Medications: Ibuprofen (Ibuprofen) 600 Mg Tablet 1 TAB PO Q8H for pain for 10 Days, #30 TAB 0 Refills with food Continued Medications: Cetirizine Hcl (Zyrtec) 10 Mg Capsule 1 CAP PO DAILY for allergy symptoms for 30 Days, #30 CAP 0 Refills [nasocort] () 250 MCG ARNULFO DAILY for allegies Discontinued Medications: Oxymetazoline HCl (Afrin) 0.05 % [place] 1 SPRAYS BOTHNARES Q12H for 3 Days, #15 ML 0 Refills Discharge Summary: Patient was admitted with the following HPI: This is a 49-year-old male with past medical history of diabetes, was transferred from [place] with a concern of colonic mass. 10 days ago he started experiencing abdominal pain, nausea, vomiting, diarrhea. The abdominal pain is located in the epigastric region, nonradiating, intermittent, crampy and pressure-like, usually occurs 15-20 minutes after eating something, feels better on lying the left side. He also had nausea and vomiting around the same time, about 3-4 episodes in total. He also had diarrhea which started around the same time, loose and watery, about 3-4 episodes an hour, denied any blood in the stool, was more watery and mucousy. He denied any fever, black-colored stools. Denied any sick contact. About three weeks ago he went hiking and was played in his stream, did not drink any of that water. None of the other people who were with him at the time of hiking are sick. No previous history of abdominal surgeries He tried taking multiple loperamide but that did not relieve with the diarrhea. Hospital course: Patient was admitted for evaluation of abdominal mass. Dr. Simmons was consulted who performed colonoscopy where a partially obstructing, fungating colon mass at the splenic flexure was found, biopsied and tattooed. Dr. Iván Dillon was consulted, and on 10/04/2024 patient underwent partial colectomy which patient tolerated well. He remained hemodynamically stable during rest of hospital course. Today, patient was able to pass gas and have a bowel movement. He was tolerating diet. Patient will be discharged home and he will follow up outpatient with Dr. Dillon, he will also need follow up with [facility]. Patient was also diagnosed with type 2 diabetes during this admission and he will be started on metformin. He will follow up with his PCP. Laboratory Tests Test 10/05/24 18:15 10/05/24 21:54 10/06/24 04:21 10/06/24 07:35 Glucometer 131 mg/dl 128 mg/dl 125 mg/dl White Blood Count 10.7 X10'3 Red Blood Count 4.76 X10'6 Hemoglobin 8.6 g/dl Hematocrit 27.6 % Mean Corpuscular Volume 57.9 FL Mean Corpuscular Hemoglobin 18.0 PG Mean Corpuscular Hemoglobin Concent 31.1 g/dL Red Cell Distribution Width 19.2 % Platelet Count 479 X10'3 Mean Platelet Volume 8.2 FL Neutrophils (%) (Auto) 77.7 % Lymphocytes (%) (Auto) 11.9 % Monocytes (%) (Auto) 8.9 % Eosinophils (%) (Auto) 1.1 % Basophils (%) (Auto) 0.4 % Neutrophils # (Auto) 8.3 X10'3 Lymphocytes # (Auto) 1.3 X10'3 Monocytes # (Auto) 0.9 X10'3 Eosinophils # (Auto) 0.1 X10'3 Basophils # (Auto) 0.0 X10'3 CBC Comment Sodium Level 139 MMOL/L Potassium Level 3.8 MMOL/L Chloride Level 103 MMOL/L Carbon Dioxide Level 26.8 MMOL/L Anion Gap 9 Blood Urea Nitrogen 6 MG/DL Creatinine 0.71 MG/DL Estimated GFR/1.73 m2 > 90 ML/MIN BUN/Creatinine Ratio 8.5 Glucose Level 123 MG/DL Calcium Level 8.4 MG/DL Magnesium Level 1.5 MG/DL Total Bilirubin 0.4 MG/DL Aspartate Amino Transf (AST/SGOT) 18 U/L Alanine Aminotransferase (ALT/SGPT) 22 U/L Alkaline Phosphatase 90 IU/L Total Protein 6.5 G/DL Albumin 3.0 G/DL Globulin 3.5 G/DL Albumin/Globulin Ratio 0.9 Chemistry Comments Test 10/06/24 13:05 10/06/24 17:22 10/06/24 20:44 10/07/24 04:25 Glucometer 127 mg/dl 122 mg/dl 129 mg/dl White Blood Count 8.9 X10'3 Red Blood Count 4.86 X10'6 Hemoglobin 8.8 g/dl Hematocrit 28.0 % Mean Corpuscular Volume 57.6 FL Mean Corpuscular Hemoglobin 18.0 PG Mean Corpuscular Hemoglobin Concent 31.3 g/dL Red Cell Distribution Width 19.6 % Platelet Count 437 X10'3 Mean Platelet Volume 8.0 FL Neutrophils (%) (Auto) 72.2 % Lymphocytes (%) (Auto) 13.3 % Monocytes (%) (Auto) 10.2 % Eosinophils (%) (Auto) 3.8 % Basophils (%) (Auto) 0.5 % Neutrophils # (Auto) 6.4 X10'3 Lymphocytes # (Auto) 1.2 X10'3 Monocytes # (Auto) 0.9 X10'3 Eosinophils # (Auto) 0.3 X10'3 Basophils # (Auto) 0.0 X10'3 CBC Comment Sodium Level 139 MMOL/L Potassium Level 3.5 MMOL/L Chloride Level 102 MMOL/L Carbon Dioxide Level 24.3 MMOL/L Anion Gap 13 Blood Urea Nitrogen 6 MG/DL Creatinine 0.73 MG/DL Estimated GFR/1.73 m2 > 90 ML/MIN BUN/Creatinine Ratio 8.2 Glucose Level 117 MG/DL Calcium Level 8.7 MG/DL Total Bilirubin 0.4 MG/DL Aspartate Amino Transf (AST/SGOT) 14 U/L Alanine Aminotransferase (ALT/SGPT) 20 U/L Alkaline Phosphatase 89 IU/L Total Protein 6.7 G/DL Albumin 2.8 G/DL Globulin 3.9 G/DL Albumin/Globulin Ratio 0.7 Chemistry Comments Test 10/07/24 07:13 10/07/24 11:42 Glucometer 126 mg/dl 150 mg/dl Imaging: Abdomen/pelvis CTA: 1. Findings most consistent with colonic neoplasm involving the splenic flexure measuring approximately 9.2 by 8.3 cm. Recommend GI and oncology consultation for further evaluation, management. 2. Atherosclerotic disease findings Discharge physical exam: Vital Signs Date Time Temp Pulse Resp B/P (MAP) Pulse Ox O2 Delivery O2 Flow Rate FiO2 10/07/24 13:11 Room Air 10/07/24 13:10 98 0 21 10/07/24 11:00 16 10/07/24 10:00 97.7 62 127/63 (84) General: Alert, awake, oriented, not in acute distress HEENT: PERRLA, no icterus, pallor, lymphadenopathy, carotid bruit Respiratory system: Bilateral vesicular breath sounds heard, no adventitious breath sounds CVS: S1-S2 heard, no murmurs/rubs/gallop GI: Surgical scars with jered, all scars look clean and without signs of infection or drainage, abdomen is Soft and mildly tender, no organomegaly, no guarding/rigidity, bowel sounds present Neuro: No focal neurological deficits present Extremities: No edema cyanosis clubbing/deformities Skin: Warm and dry Patient will be discharged with the following recommendations: Please follow up with Dr Dillon within two weeks Follow up with your PCP within one week We will provide you with the information for [facility] for you to schedule an appointment - [phone] Advance your diet as tolerated Please return to the ED if any increasing abdominal pain, nausea, vomiting or any other concerning symptoms *Problems/Diagnosis: (1) Colon cancer Total Time Spent on D/C: > 30 Minutes Date of Service: October 07, 2024 Billing Provider: JAMES RDZ MD Problem Qualifiers (1) Colon cancer: Colon location: splenic flexure Qualified Codes: C18.5 - Malignant neoplasm of splenic flexure AIRAM GALVANNEOJOVAYN SINGH October 07, 2024 16:31
[2024-10-07] MEDS: PCA WASTE DOCUMENTATION 1 MG ML MC SCH (18:57)
== END 2024-10-07 15:45 | disposition home or self-care (01) | DRG 330 ==
LOC: ER 01:48 → ED HOLD 03:10 → ORTHO 4S 08:12 → SUR 3N 10-05 00:20
PROVIDERS: ADMIT Internal Medicine; ATTEND Family Medicine
PROC: B4201ZZ Computerized Tomography (CT Scan) of Abdominal Aorta using Low Osmolar Contrast (ICD-10-PCS; 2024-10-02)
PROC: B4241ZZ Computerized Tomography (CT Scan) of Superior Mesenteric Artery using Low Osmolar Contrast (ICD-10-PCS; 2024-10-02)
PROC: B4281ZZ Computerized Tomography (CT Scan) of Bilateral Renal Arteries using Low Osmolar Contrast (ICD-10-PCS; 2024-10-02)
PROC: B42C1ZZ Computerized Tomography (CT Scan) of Pelvic Arteries using Low Osmolar Contrast (ICD-10-PCS; 2024-10-02)
PROC: B42H1ZZ Computerized Tomography (CT Scan) of Bilateral Lower Extremity Arteries using Low Osmolar Contrast (ICD-10-PCS; 2024-10-02)
PROC: B4211ZZ Computerized Tomography (CT Scan) of Celiac Artery using Low Osmolar Contrast (ICD-10-PCS; 2024-10-02)
PROC: 0DBP8ZZ Excision of Rectum, Via Natural or Artificial Opening Endoscopic (ICD-10-PCS; 2024-10-03)
PROC: 0DBL8ZX Excision of Transverse Colon, Via Natural or Artificial Opening Endoscopic, Diagnostic (ICD-10-PCS; 2024-10-03)
PROC: 3E0T3BZ Introduction of Anesthetic Agent into Peripheral Nerves and Plexi, Percutaneous Approach (ICD-10-PCS; 2024-10-04)
PROC: 8E0W4CZ Robotic Assisted Procedure of Trunk Region, Percutaneous Endoscopic Approach (ICD-10-PCS; 2024-10-04)
PROC: 30233N1 Transfusion of Nonautologous Red Blood Cells into Peripheral Vein, Percutaneous Approach (ICD-10-PCS; 2024-10-04)
PROC: 0DNL4ZZ Release Transverse Colon, Percutaneous Endoscopic Approach (ICD-10-PCS; 2024-10-04)
PROC: 0D1L4Z4 Bypass Transverse Colon to Cutaneous, Percutaneous Endoscopic Approach (ICD-10-PCS; 2024-10-04)
PROC: 0D1A4ZA Bypass Jejunum to Jejunum, Percutaneous Endoscopic Approach (ICD-10-PCS; principal; 2024-10-04 18:35)
DX: C18.5 Malignant neoplasm of splenic flexure (principal); E87.20 Acidosis, unspecified; K56.690 Other partial intestinal obstruction; F32.A Depression, unspecified; D72.829 Elevated white blood cell count, unspecified; D12.8 Benign neoplasm of rectum; K66.0 Peritoneal adhesions (postprocedural) (postinfection); F41.9 Anxiety disorder, unspecified; D50.9 Iron deficiency anemia, unspecified; E11.9 Type 2 diabetes mellitus without complications; Z87.891 Personal history of nicotine dependence; Z88.6 Allergy status to analgesic agent
CPT/HCPCS: 36415; 45380; 45385; 74174; 80047; 80053; 80061; 81003; 82272; 82378; 82728; 82948; 83036; 83540; 83550; 83605; 83735; 84145; 85008; 85025; 85651; 86140; 86885; 86900; 86901; 86920; 87045; 87046; 87081; 87324; 87449; 89055; 96365; 96375; 99285; A4215; A4615; A4618; A4620; A5200; C1758; C1889; G0378; J0131; J0666; J0694; J0696; J1171; J1650; J1815; J2060; J2250; J2270; J2405; J2470; J2704; J3010; J3490; J7030; J7040; J7120; P9016; P9045; Q9967